=== PATIENT | female | born 1990 | race Caucasian/White ===

== ENCOUNTER → 2018-11-16 | Outpatient (CLI) | payer OTHER ==
[~2018-11-16] MED LIST: PREN-127 PO
[2018-11-16 10:51] LABS: PLATELET COUNT, AUTOMATED 169 K/uL (150-450)
== END ==
LOC: LAB 10:32
PROVIDERS: ATTEND Obstetrics & Gynecology
DX: Z34.91 Encounter for supervision of normal pregnancy, unspecified, first trimester (principal)
CPT/HCPCS: 36415; 81001; 85025; 86592; 86703; 86762; 86850; 86900; 86901; 87088; 87340

== ENCOUNTER → 2019-01-19 | Outpatient (CLI) | payer OTHER ==
[~2019-01-19] MED LIST changes: +FLU60SYR36 IM; +[UNRECOGNIZED DRUG - CODE] MC
== END ==
LOC: LAB 07:50
PROVIDERS: ATTEND Obstetrics & Gynecology
DX: Z34.90 Encounter for supervision of normal pregnancy, unspecified, unspecified trimester (principal); O16.9 Unspecified maternal hypertension, unspecified trimester
CPT/HCPCS: 36415; 82040; 82247; 82310; 82374; 82435; 82565; 82947; 84075; 84132; 84155; 84156; 84295; 84450; 84460; 84520

== ENCOUNTER → 2019-02-22 | Outpatient (CLI) | payer OTHER ==
--- NOTE | 2019-02-22 13:05 | RADIOLOGY IMAGING REPORT ---
[place] [facility] [place] NAME: Irina Mix : 1990 MR: [id number] V: [id number] EXAM DATE: [id number] ORDERING PHYSICIAN: NANDO GUTIÉRREZ TECHNOLOGIST: Location: [facility] - [place] Patient: Irina Mix : 1990 Visit/Account:[id number] Date of Sevice: 02/22/2019 EXAMINATION: Ultrasound transabdominal OB > 14 weeks with anatomic evaluation HISTORY: , anatomy scan. LMP 10/03/2018. COMPARISON: None. TECHNIQUE: Transabdominal imaging was performed for assessment of the fetus and maternal pelvic structures. T ransvaginal imaging was not performed. FINDINGS: Placenta: Posterior without previa. Cord insertion on the placenta appears normal. Uterus: Gravid, otherwise normal Cervix: Long and closed. Maternal Ovaries: Not visualized. Maternal and other adnexa findings: Negative. Intrauterine gestations: One. presentation: Variable heart rate: Normal and regular at 140 bpm Amniotic fluid index: 15.4 cm Largest amniotic fluid pocket: 4.4 cm Gestational Parameters: BPD: 4.7 cm 20 weeks/ 2 days, 44th percentile HC: 17.9 cm 20 weeks/ 3 days, 43rd percentile AC: 14.9 cm 20 weeks/ 2 days, 40th percentile FL: 3.3 cm 20 weeks/ 3 days, 44th percentile Average ultrasound age (AUA): 20 weeks/3 days, VASHTI 07/09/2019 Estimated gestational age by VASHTI: 20 weeks/2 days, VASHTI 07/10/2019 Estimated weight (EFW): 342 grams +/- 50 grams EFW for VASHTI: 44th percentile Anatomic Survey: Intracranial structures, 4-chamber heart, stomach, kidneys, urinary bladder, spine, 3-vessel cord and cord insertion are unremarkable. Two upper and two lower extremities visualized. Cardiac ventricula r outflow tracts, palate and lips are unremarkable in appearance. IMPRESSION: 1. Single live intrauterine gestation with average ultrasound age of 20 weeks 3 days. This is conco rdant with the given VASHTI dates of 20 weeks 2 days. VASHTI is 07/10/2019. 2. Posterior placenta without previa. 3. Unremarkable anatomic survey. Report Dictated By: Ml Lam MD at 02/22/2019 12:49 PM Report E-Signed By: Ml Lam MD at 02/22/2019 1:01 PM WSN:SAM
== END ==
LOC: RAD 08:34
PROVIDERS: ATTEND Obstetrics & Gynecology
DX: Z34.82 Encounter for supervision of other normal pregnancy, second trimester (principal); Z3A.20 20 weeks gestation of pregnancy